=== PATIENT | male | born 1990 | race Caucasian/White ===

== ENCOUNTER → 2021-06-16 | Outpatient (CLI) | payer OTHER | LOC: COL.RAD 08:53 | DX: G93.2 Benign intracranial hypertension (principal) | CPT/HCPCS: A9585 ==

== ENCOUNTER 2022-02-28 10:41 | Day surgery (SDC) | payer OTHER ==
[2022-02-28] VITALS (8 sets, daily range): BP systolic 114–134; BP diastolic 61–79; PULSE 56–61; TEMP 97.9–98.6
[~2022-02-28] VITALS: Ht 182.9 cm; Wt 84.0 kg
[2022-02-28] MEDS ORDERED: ASPIRIN E.C. 8181 MG PO (10:54)
[2022-02-28] MEDS ORDERED: BRILINTA60 MG PO (11:00)
[2022-02-28] MEDS ORDERED: DIAMOX125 MG PO (11:02)
--- NOTE | 2022-02-28 11:27 | NUR ---
1115 - PT rates pain 8/10 in R flank, sharp and burning pain. IV medication administered per order. PT verbalized understanding side effects and IV flushed prior to administration. Call gan remains within reach. Side rails x2. ID band placed; first and last name + verified with the PT.
[2022-02-28] MEDS ORDERED: PYRIDIUM 100MG100 MG PO (18:48)
--- NOTE | 2022-02-28 20:00 | NUR ---
PT ARRIVED TO THE SURGICAL FLOOR AROUND 2000HRS TO ROOM 346. PT A&O X4; VSS; O2 RA, PT DENIED CHEST PAIN, PALPITATIONS, N,V,D, SOB OR DIZZINESS. PT COMPLAINED OF MILD LEFT FLANK PAIN. PT GIVEN SCHEDULED TYLENOL FOR PAIN. PT FELT TYLENOL WAS EFFECTIVE AT THIS TIME. ADMISSIONS ASSESSMENT AND MED REC COMPLETE. PT ORIENTED TO FLOOR AND HOSPITAL POLICY. POC DISCUSSED WITH PT. PT VERBALIZED UNDERSTANDING. ALL QUESTIONS AND CONCERNS ADDRESSED. PT EXPRESSED NO ADDITIONAL NEEDS AT THIS TIME. CALL LIGHT WITHIN REACH.
--- NOTE | 2022-02-28 23:35 | NUR ---
DISCHARGE PAPERWORK AND INSTRUCTIONS REVIEWED WITH PT. ALL QUESTIONS AND CONCERNS ADDRESSED AT THIS TIME. INT TO RA D/C'D. CATHETER TIP INTACT. PT WHEELCHAIRED OUT OF FACILITY BY TOSIN.
== END 2022-02-28 23:35 | disposition home or self-care (01) ==
LOC: SDCO 10:41 → SURG 20:59 → SDCO 23:35
DX: N20.1 Calculus of ureter (principal); F17.210 Nicotine dependence, cigarettes, uncomplicated; F17.290 Nicotine dependence, other tobacco product, uncomplicated
CPT/HCPCS: OP; C1769; J0690; J1100; J2270; J2405; J2704; J3010; Q9967